=== PATIENT | male | born 1965 | race Caucasian/White ===

== ENCOUNTER 2019-02-25 11:55 | Emergency (ER) | payer MEDICAID ==
[~2019-02-25] VITALS: Ht 177.8 cm; Wt 65.9 kg
[2019-02-25] MEDS ORDERED: metoprolol tartrate 50mg tablet PO ONE (12:15)
[2019-02-25] MEDS ORDERED: diphenhydrAMINE 25mg capsule PO ONE (12:20)
[2019-02-25] MEDS ORDERED: LORazepam 1 MG tablet PO ONE (12:20)
[2019-02-25 12:33] VITALS: BP 192/141
== END 2019-02-25 13:30 | disposition home or self-care (01) ==
LOC: ER 11:56
DX: I10 Essential (primary) hypertension (principal); E78.00 Pure hypercholesterolemia, unspecified; F41.9 Anxiety disorder, unspecified; F43.10 Post-traumatic stress disorder, unspecified; Z91.013 Allergy to seafood
CPT/HCPCS: 99284; Q0163